=== PATIENT | male | born 1960 | race Caucasian/White ===

== ENCOUNTER 2020-12-16 17:18 | Emergency (ER) | payer MEDICARE, MEDICAID, SELFPAY ==
--- NOTE | 2020-12-16 17:23 | ED.SKABFB ---
HPI - Skin/Abscess/Foreign Bdy General Stated complaint: left elbow sore Time Seen by Provider: 12/16/20 17:22 Source: patient and RN notes reviewed History of Present Illness HPI narrative: Patient is a 60-year-old male who presents the urgent care with complaints of a sore to the left elbow. Patient states he noticed it around noon yesterday and believes it is a spider bite . Patient did not see a spider bite him. Denies any fever, chills, nausea, vomiting. Patient has been loading salve on the area and covering it with an occlusive bandage. No other acute complaints. No acute distress noted. Patient aware of the plan of care. Some parts of this dictation were generated by voice recognition software and may contain typographical and/or grammatical inaccuracies. Related Data Allergies Allergy/AdvReac Type Severity Reaction Status Date / Time ciprofloxacin Allergy Unknown Verified 12/16/20 17:38 Review of Systems Review of Systems: CONSTITUTIONAL: Denies fever, chills, or sweats. EYES: Denies visual changes, redness, or discharge. ENT: Denies rhinorrhea, congestion, sore throat, or otalgia. CARDIOVASCULAR: Denies chest pain, palpitations, or edema. RESPIRATORY: Denies cough or dyspnea. GASTROINTESTINAL: Denies abdominal pain, nausea, vomiting, or diarrhea. GENITOURINARY: Denies dysuria or hematuria. SKIN: Reports of a possible spider bite to the left elbow MUSCULOSKELETAL: Denies back pain, joint pain, or myalgia. NEUROLOGIC: Denies headache, numbness, or weakness. All other systems reviewed are negative, except as documented in HPI. PMFSH Comments At the time of my signature, I reviewed and agree with the nursing past medical, surgical, social, and family history. There is no relevant family history pertinent to the patient complaint. Exam Narrative: GENERAL: This is a well-nourished, well-developed patient, in no apparent distress. HEAD: normocephalic, atraumatic. EYES: PERRL. Sclera clear/white. Vision is grossly intact. EARS: External ears normal NOSE: External nose normal with no obvious nasal discharge, nares without redness, no rhinorrhea. THROAT: Mucous membranes moist NECK: Neck supple CARDIOVASCULAR: Regular rate and rhythm without murmurs, gallops, or rubs. RESPIRATORY: Clear to auscultation. Breath sounds equal bilaterally. No wheezes, rales, or rhonchi. SKIN: Firm 2 x 2 area surrounding a nondraining insect bite to the left upper forearm without any surrounding erythema NEURO: awake, alert, and oriented to person, place and time. There were no obvious focal neurologic abnormalities. EXTREMITIES: No clubbing, cyanosis, or edema. Course Vital Signs Vital signs: Vital Signs Temperature 98.6 F 12/16/20 17:27 Pulse Rate 87 12/16/20 17:27 Respiratory Rate 16 12/16/20 17:27 Blood Pressure 117/83 12/16/20 17:27 Pulse Oximetry 98 12/16/20 17:27 Temperature 98.6 F 12/16/20 17:27 Pulse Rate 87 12/16/20 17:27 Respiratory Rate 16 12/16/20 17:27 Blood Pressure 117/83 12/16/20 17:27 Pulse Oximetry 98 12/16/20 17:27 Reviewed MDM - Skin/Abscess/Foreign Bdy MDM Narrative Medical decision making narrative: Explained to the patient that this is a typical type of localized reaction to a possible insect. These areas do not normally become infected unless you continue to pick on the area. At this time antibiotics are not necessary. However, will fill an antibiotic regimen. If the area becomes increased in size, pain or redness?start the antibiotic regimen. Make sure to eat and drink with the medication. Keep the area clean with plain Dial soap and water and tent a bandage over the area with prescription cream. Follow-up with your PCP within 2 to 5 days if worsening symptoms or failure to improve. Differential Diagnosis Differential diagnosis: Likely abscess of skin or subcutaneous tissue, allergic reaction to drug, cellulitis, insect bites, impetigo and contact dermatitis Critical C
[2020-12-16 17:27] VITALS: BP 117/83; PULSE 87; RESP 16; TEMP 37; O2SAT 98
== END 2020-12-16 17:40 | disposition home or self-care (01) ==
PROVIDERS: Emergency Provider Nurse Practitioner Family; PCP Nurse Practitioner Family
DX: S50.862A Insect bite (nonvenomous) of left forearm, initial encounter (principal); W57.XXXA Bitten or stung by nonvenomous insect and other nonvenomous arthropods, initial encounter; E78.00 Pure hypercholesterolemia, unspecified; K21.9 Gastro-esophageal reflux disease without esophagitis; E03.9 Hypothyroidism, unspecified; I50.9 Heart failure, unspecified; E11.9 Type 2 diabetes mellitus without complications
CPT/HCPCS: 99213; G0463

== ENCOUNTER 2021-01-10 08:15 | Emergency (ER) | payer MEDICARE, MEDICAID, SELFPAY ==
--- NOTE | 2021-01-10 08:17 | ED.URI ---
HPI - URI/Sore Throat General Chief Complaint: Upper Respiratory Infection Stated Complaint: Cough/Chest Congestion Time Seen by Provider: 01/10/21 08:17 Source: patient and RN notes reviewed History of Present Illness HPI Narrative: Patient is 60-year-old male who presents the urgent care with complaints of acute on chronic sinusitis. Patient states that he has noticed an increased cough and sinus congestion for the last week with postnasal drainage. Patient denies of any recent fevers, nausea, vomiting. Patient has been to several ENTs without any relief. Patient states he is taken antibiotics, use a nasal spray, and nothing is working. Patient states that for the last week with his new symptoms he has been taking everything [id number] including cold and cough medication . No other acute complaints. No acute distress noted. Patient aware of the plan of care. Some parts of this dictation were generated by voice recognition software and may contain typographical and/or grammatical inaccuracies. Related Data Home Medications Medication Instructions Recorded Confirmed carvedilol 6.25 mg PO DAILY 01/10/21 01/10/21 dapagliflozin [Farxiga] 5 mg PO DAILY 01/10/21 01/10/21 furosemide 40 mg PO DAILY 01/10/21 01/10/21 levocetirizine 5 mg PO DAILY 01/10/21 01/10/21 levothyroxine 50 mcg PO DAILY 01/10/21 01/10/21 metformin 1,000 mg PO DAILY 01/10/21 01/10/21 montelukast 10 mg PO DAILY 01/10/21 01/10/21 omeprazole 20 mg PO DAILY 01/10/21 01/10/21 pravastatin 20 mg PO DAILY 01/10/21 01/10/21 sacubitril-valsartan [Entresto] 1 tablet PO DAILY 01/10/21 01/10/21 tamsulosin 0.4 mg PO DAILY 01/10/21 01/10/21 Allergies Allergy/AdvReac Type Severity Reaction Status Date / Time No Known Allergies Allergy Verified 01/10/21 08:39 Review of Systems Review of Systems: CONSTITUTIONAL: Denies fever, chills, or sweats. EYES: Denies visual changes, redness, or discharge. ENT: Reports of rhinorrhea, sinus congestion and postnasal drainage CARDIOVASCULAR: Denies chest pain, palpitations, or edema. RESPIRATORY: Reports of cough without dyspnea GASTROINTESTINAL: Denies abdominal pain, nausea, vomiting, or diarrhea. GENITOURINARY: Denies dysuria or hematuria. SKIN: Denies rash or itching. MUSCULOSKELETAL: Denies back pain, joint pain, or myalgia. NEUROLOGIC: Denies headache, numbness, or weakness. All other systems reviewed are negative, except as documented in HPI. PMFSH Comments At the time of my signature, I reviewed and agree with the nursing past medical, surgical, social, and family history. There is no relevant family history pertinent to the patient complaint. Exam Narrative: GENERAL: This is a well-nourished, well-developed patient, in no apparent distress. HEAD: normocephalic, atraumatic. Frontal sinus tenderness EYES: PERRL. Sclera clear/white. Vision is grossly intact. EARS: External ears normal, auditory canals clear and without drainage, TMs normal without perforation. Hearing grossly intact. NOSE: External nose normal with no obvious nasal discharge, bilateral erythemic nares with clear rhinorrhea. THROAT: Mucous membranes moist, posterior pharynx clear. Moderate postnasal drainage NECK: Neck supple, non-tender without lymphadenopathy CARDIOVASCULAR: Regular rate and rhythm without murmurs, gallops, or rubs. RESPIRATORY: Clear to auscultation. Breath sounds equal bilaterally. No wheezes, rales, or rhonchi. SKIN: warm, intact with no suspicious lesions or rash, good texture and turgor. NEURO: awake, alert, and oriented to person, place and time. There were no obvious focal neurologic abnormalities. EXTREMITIES: No clubbing, cyanosis, or edema. Course Vital Signs Vital signs: Vital Signs Temperature 98.0 F 01/10/21 08:26 Pulse Rate 73 01/10/21 08:26 Respiratory Rate 20 01/10/21 08:26 Blood Pressure 121/70 01/10/21 08:26 Pulse Oximetry 100 01/10/21 08:26 Temperature 98.0 F 01/10/21 08:26 Pulse Rat
[2021-01-10 08:26] VITALS: BP 121/70; PULSE 73; RESP 20; TEMP 36.7; O2SAT 100
== END 2021-01-10 08:49 | disposition home or self-care (01) ==
PROVIDERS: Emergency Provider Nurse Practitioner Family; PCP Nurse Practitioner Family
DX: J01.90 Acute sinusitis, unspecified (principal); E78.00 Pure hypercholesterolemia, unspecified; I10 Essential (primary) hypertension; K21.9 Gastro-esophageal reflux disease without esophagitis; M19.90 Unspecified osteoarthritis, unspecified site
CPT/HCPCS: 99213; G0463

== ENCOUNTER 2021-05-22 14:43 | Emergency (ER) | payer MEDICARE, MEDICAID, SELFPAY ==
[2021-05-22 14:55] VITALS: BP 113/71; PULSE 91; RESP 16; TEMP 37.3; O2SAT 97
--- NOTE | 2021-05-22 15:23 | ED.URI ---
HPI - URI/Sore Throat General Chief Complaint: Upper Respiratory Infection Stated Complaint: sinus infection Time Seen by Provider: 05/22/21 15:20 Source: patient and RN notes reviewed Mode of arrival: ambulatory Limitations: no limitations History of Present Illness HPI Narrative: 61-year-old male presents concern for number 1 week history of sinus pressure, congestion, pain, cough, purulent drainage. Reports history of sinus surgery and infections. Reports trying Mucinex that relief. He denies fever, bodies, chills, sweats. MD elicited complaint: cough, rhinorrhea and nasal congestion Related Data Home Medications Medication Instructions Recorded Confirmed carvedilol 6.25 mg PO BID 12/16/20 05/22/21 dapagliflozin [Farxiga] 5 mg PO DAILY 12/16/20 05/22/21 furosemide 40 mg PO DAILY 12/16/20 05/22/21 hydrocodone-acetaminophen 1 tablet PO TID PRN 12/16/20 05/22/21 levocetirizine 5 mg PO DAILY 12/16/20 05/22/21 levothyroxine 50 mcg PO DAILY 12/16/20 05/22/21 montelukast 10 mg PO DAILY 12/16/20 05/22/21 omeprazole 20 mg PO DAILY 12/16/20 05/22/21 metformin 1,000 mg PO DAILY 01/10/21 05/22/21 pravastatin 20 mg PO DAILY 01/10/21 05/22/21 sacubitril-valsartan [Entresto] 1 tablet PO DAILY 01/10/21 05/22/21 tamsulosin 0.4 mg PO DAILY 01/10/21 05/22/21 cyclobenzaprine 10 mg PO TID PRN 05/22/21 05/22/21 Allergies Allergy/AdvReac Type Severity Reaction Status Date / Time ciprofloxacin Allergy Unknown Verified 05/12/21 08:33 sitagliptin [From Januvia] Allergy Rash Verified 05/22/21 15:10 Review of Systems Review of Systems: CONSTITUTIONAL: Denies malaise, chills, sweats, or fever. EYES: Denies visual changes, redness, or discharge. ENT: Reports rhinorrhea, congestion, sinus pain. Denies otalgia and sore throat. CARDIOVASCULAR: Denies chest pain, palpitations, or edema. RESPIRATORY: Reports cough. Denies dyspnea. GASTROINTESTINAL: Denies abdominal pain, nausea, vomiting, diarrhea SKIN: Denies rash or itching. MUSCULOSKELETAL: Denies myalgia. NEUROLOGIC: Denies headache. All systems reviewed & are unremarkable except as noted in HPI and below PMFSH Comments At time of signature, agree with nursing past medical, surgical, social and family history. There is no relevant family history pertinent to the presenting complaint Exam Narrative: GENERAL: Well-appearing, well-nourished, and in no acute distress. HEAD: Normocephalic EYES: PERRLA, conjunctivae clear ENT: Nares clear, turbinates edematous and erythematous, clear discharge. Mucous membranes moist. TM pearly raines with dull light reflex bilaterally; no tragal tenderness. Oropharynx not erythematous without lesions. Tonsils not enlarged and without exudate, no drooling, no hoarseness, no trismus, uvula midline. NECK: Supple. No lymphadenopathy CHEST: Clear to auscultation, breath sounds equal. No wheezing, rhonchi, rales, or stridor. No respiratory distress, speaks in full sentences. HEART: Regular rate and rhythm. No murmur heard. SKIN: Warm, dry, no rash. NEURO: Alert and oriented x3. PSYCH: Normal mood and affect Course Course Emergency Course: Patient is aware of diagnosis, understands and agrees to treatment plan. Anticipatory guidance given. Patient agrees to follow-up as directed and is aware of reasons to seek care at the emergency department. Portions of this record may have been created with voice recognition software Level of Care: Express Care Visit Vital Signs Vital signs: Vital Signs Temperature 99.1 F 05/22/21 14:55 Pulse Rate 91 05/22/21 14:55 Respiratory Rate 16 05/22/21 14:55 Blood Pressure 113/71 05/22/21 14:55 Pulse Oximetry 97 05/22/21 14:55 Temperature 99.1 F 05/22/21 14:55 Pulse Rate 91 05/22/21 14:55 Respiratory Rate 16 05/22/21 14:55 Blood Pressure 113/71 05/22/21 14:55 Pulse Oximetry 97 05/22/21 14:55 Reviewed. MDM - URI/Sore Throat MDM Narrative Medical decision making narrative: Differential diagnosi
== END 2021-05-22 15:33 | disposition home or self-care (01) ==
PROVIDERS: Emergency Provider Nurse Practitioner; PCP Nurse Practitioner Family
DX: J32.9 Chronic sinusitis, unspecified (principal); J40 Bronchitis, not specified as acute or chronic; E78.00 Pure hypercholesterolemia, unspecified; I10 Essential (primary) hypertension; K21.9 Gastro-esophageal reflux disease without esophagitis; M19.90 Unspecified osteoarthritis, unspecified site; E11.9 Type 2 diabetes mellitus without complications; E03.9 Hypothyroidism, unspecified
CPT/HCPCS: 99213; G0463

== ENCOUNTER 2021-10-20 10:39 | Emergency (ER) | payer MEDICARE, MEDICAID, SELFPAY ==
--- NOTE | ~2021-10-20 | XR_ITS ---
EXAMINATION: XR chest 2V 10/20/2021 11:28 INDICATION: Cough. CHF. PROCEDURE: 2 view chest COMPARISON: No prior studies for comparison. FINDINGS: The lungs are clear. The cardiomediastinal silhouette is within normal limits. There are no pleural effusions. There is no pneumothorax suspected. 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 IMPRESSION: 1: NO ACUTE CARDIOPULMONARY DISEASE. Reviewed, dictated and finalized at location B.
[2021-10-20 10:44] VITALS: BP 125/74; PULSE 73; RESP 20; TEMP 37.3; O2SAT 98
--- NOTE | 2021-10-20 11:08 | ED.URI ---
HPI - URI/Sore Throat General Chief Complaint: Upper Respiratory Infection Stated Complaint: cough Time Seen by Provider: 10/20/21 11:13 Source: patient and RN notes reviewed Mode of arrival: ambulatory Limitations: no limitations History of Present Illness HPI Narrative: 61 y/o male presented for c/o cough worsening for one week. He was seen in ER 10/13/21 for sinusitis, taking Augmentin x14 days as directed. States cough has persisted, worse at night. Productive clear/white sputum. Occasional wheezing at night. Endorses fatigue and sob with exertion and throat/chest discomfort with cough. History of bronchitis, diabetes, CHF. MD elicited complaint: cough Related Data Home Medications Medication Instructions Recorded Confirmed carvedilol 6.25 mg tablet 6.25 mg PO BID 12/16/20 10/20/21 dapagliflozin 5 mg tablet (Farxiga) 5 mg PO DAILY 12/16/20 10/20/21 furosemide 40 mg tablet 40 mg PO DAILY 12/16/20 10/20/21 hydrocodone 7.5 mg-acetaminophen 1 tablet PO TID PRN Pain 12/16/20 10/20/21 325 mg tablet levocetirizine 5 mg tablet 5 mg PO DAILY 12/16/20 10/20/21 levothyroxine 50 mcg tablet 50 mcg PO DAILY 12/16/20 10/20/21 montelukast 10 mg tablet 10 mg PO DAILY 12/16/20 10/20/21 omeprazole 20 mg capsule,delayed 20 mg PO DAILY 12/16/20 10/20/21 release metformin 1,000 mg tablet 1,000 mg PO DAILY 01/10/21 10/20/21 pravastatin 20 mg tablet 20 mg PO DAILY 01/10/21 10/20/21 sacubitril 49 mg-valsartan 51 mg 1 tablet PO DAILY 01/10/21 10/20/21 tablet (Entresto) tamsulosin 0.4 mg capsule 0.4 mg PO DAILY 01/10/21 10/20/21 cyclobenzaprine 10 mg tablet 10 mg PO TID PRN Muscle Spasm 05/22/21 10/20/21 Allergies Allergy/AdvReac Type Severity Reaction Status Date / Time ciprofloxacin Allergy Unknown Verified 10/20/21 11:03 sitagliptin [From Januvia] Allergy Rash Verified 10/20/21 11:03 Review of Systems Review of Systems: CONSTITUTIONAL: denies malaise, chills, sweats, fever EYES: Denies visual changes, redness, or discharge ENT: Reports rhinorrhea, congestion, sinus pain CARDIOVASCULAR: Denies chest pain, palpitations, edema RESPIRATORY: Reports cough, post nasal drainage. GASTROINTESTINAL: Denies abdominal pain, nausea, vomiting, diarrhea SKIN: Denies rash or itching MUSCULOSKELETAL: denies myalgia NEUROLOGIC: Denies headache Exam Narrative: GENERAL: Ill-appearing EYES: conjunctivae clear ENT: Mucous membranes moist. TM pearly raines with dull light reflex bilaterally; no tragal tenderness. Oropharynx erythematous without lesions or exudate, no drooling, no hoarseness, no trismus, uvula midline. CHEST: Crackles to bases. No wheezing, rhonchi, rales, or stridor. No respiratory distress, speaks in full sentences. HEART: Regular rate and rhythm. No murmur heard. SKIN: Warm, dry, no rash. NEURO: Alert and oriented x3. PSYCH: Normal mood and affect Course Course Emergency Course: Patient is aware of diagnosis, understands and agrees to treatment plan. Anticipatory guidance given. Patient agrees to follow-up as directed and is aware of reasons to seek care at the emergency department. Portions of this record may have been created with voice recognition software Level of Care: Express Care Visit Vital Signs Vital signs: Vital Signs Temperature 99.1 F 10/20/21 10:44 Pulse Rate 73 10/20/21 10:44 Respiratory Rate 20 10/20/21 10:44 Blood Pressure 125/74 10/20/21 10:44 Pulse Oximetry 98 10/20/21 10:44 Oxygen Delivery Room Air 10/20/21 10:44 Temperature 99.1 F 10/20/21 10:44 Pulse Rate 73 10/20/21 10:44 Respiratory Rate 20 10/20/21 10:44 Blood Pressure 125/74 10/20/21 10:44 Pulse Oximetry 98 10/20/21 10:44 Oxygen Delivery Room Air 10/20/21 10:44 reviewed MDM - URI/Sore Throat MDM Narrative Medical decision making narrative: Result of chest x-ray reviewed with patient. No acute disease. Advised supportive measures, reviewed Rx's and signs/symptoms to go to the ER. Pt is a
== END 2021-10-20 11:55 | disposition home or self-care (01) ==
PROVIDERS: Emergency Provider Nurse Practitioner Family; PCP Nurse Practitioner Family
DX: J40 Bronchitis, not specified as acute or chronic (principal); E11.9 Type 2 diabetes mellitus without complications; I50.9 Heart failure, unspecified
CPT/HCPCS: 71046; 99213; G0463

== ENCOUNTER 2022-06-25 11:47 | Emergency (ER) | payer MEDICARE, MEDICAID, SELFPAY ==
[2022-06-25 11:54] VITALS: BP 114/73; PULSE 79; RESP 20; TEMP 37; O2SAT 98
[2022-06-25 12:02] VITALS: BP 114/73; PULSE 79; RESP 20; TEMP 37; O2SAT 98
--- NOTE | 2022-06-25 12:02 | ED.DENTAL ---
HPI - Dental/Oral General Chief complaint: Ear Stated complaint: ear or tooth Time Seen by Provider: 06/25/22 12:02 History of Present Illness HPI Narrative: Patient presents with left ear on left lower gum pain. Patient is not sure if it is here or his teeth. Patient states he has bad teeth and has not seen a dentist in quite some time. Related Data Home Medications Medication Instructions Recorded Confirmed carvedilol 6.25 mg tablet 6.25 mg PO BID 12/16/20 06/25/22 furosemide 40 mg tablet 40 mg PO DAILY 12/16/20 06/25/22 hydrocodone 7.5 mg-acetaminophen 1 tablet PO TID PRN Pain 12/16/20 06/25/22 325 mg tablet levocetirizine 5 mg tablet 5 mg PO DAILY 12/16/20 06/25/22 levothyroxine 50 mcg tablet 50 mcg PO DAILY 12/16/20 06/25/22 montelukast 10 mg tablet 10 mg PO DAILY 12/16/20 06/25/22 omeprazole 20 mg capsule,delayed 20 mg PO DAILY 12/16/20 06/25/22 release metformin 1,000 mg tablet 1,000 mg PO DAILY 01/10/21 06/25/22 pravastatin 20 mg tablet 20 mg PO DAILY 01/10/21 06/25/22 sacubitril 49 mg-valsartan 51 mg 1 tablet PO DAILY 01/10/21 06/25/22 tablet (Entresto) tamsulosin 0.4 mg capsule 0.4 mg PO DAILY 01/10/21 06/25/22 Allergies Allergy/AdvReac Type Severity Reaction Status Date / Time ciprofloxacin Allergy Unknown Verified 06/25/22 11:59 sitagliptin [From Januvia] Allergy Rash Verified 06/25/22 11:59 Review of Systems Review of Systems: CONSTITUTIONAL: Denies fever, chills, or sweats. EYES: Denies visual changes, redness, or discharge. ENT: Denies rhinorrhea, congestion, sore throat, or otalgia. NO FEVER. NO JAW SWELLING. NO NECK SWELLING. NO LIMITATION WITH SPEAKING OR SWALLOWING. HAS A HISTORY OF DENTAL CARIES. HAS NOT SEEN A DENTIST RECENTLY. Pain to left lower molar CARDIOVASCULAR: Denies chest pain, palpitations, or edema. RESPIRATORY: Denies cough or dyspnea. GASTROINTESTINAL: Denies abdominal pain, nausea, vomiting, or diarrhea. GENITOURINARY: Denies dysuria or hematuria. SKIN: Denies rash or itching. MUSCULOSKELETAL: Denies back pain, joint pain, or myalgia. NEUROLOGIC: Denies headache, numbness, or weakness. PSYCHIATRIC: Denies anxiety or depression. Exam Narrative: GENERAL: Well-appearing, well-nourished, and in no acute distress. HEAD: Normocephalic, atraumatic. EYES: PERRLA and EOMI. ENT: Nares clear, no rhinorrhea or epistaxis. Mucous membranes moist. NO YOLANDA APICAL SWELLING, TOOTH TENDER TO PALPATION. NO FACIAL SWELLING. NO TRISMUS. ABLE TO OPEN MOUTH FULLY. NO NECK SWELLING OR LIU'S ANGINA. NO ABSCESS TO BE DRAINED. no drooling, trismus, facial asymmetry or significant neck swelling left 1st molar NECK: Supple. CHEST: Clear to auscultation. No respiratory distress. HEART: Regular rate and rhythm. No murmur heard. Normal peripheral pulses. ABDOMEN: Soft, nontender, nondistended, normal active bowel sounds. EXTREMITIES: Normal range of motion. No edema. SKIN: Warm, dry, no rash. NEURO: No focal deficits. Alert and oriented x3. [place] Coma Scale Eye Opening: Spontaneous 4 [place] Coma Scale Motor: Obeys Commands 6 [place] Coma Scale Verbal: Oriented 5 [place] Coma Scale Total 15 Course Course Level of Care: Express Care Visit Vital Signs Vital signs: Vital Signs Temperature 37.0 C 06/25/22 11:54 Pulse Rate 79 06/25/22 11:54 Respiratory Rate 20 06/25/22 11:54 Blood Pressure 114/73 06/25/22 11:54 Pulse Oximetry 98 06/25/22 11:54 Oxygen Delivery Room Air 06/25/22 11:54 Temperature 37.0 C 06/25/22 12:02 Pulse Rate 79 06/25/22 12:02 Respiratory Rate 20 06/25/22 12:02 Blood Pressure 114/73 06/25/22 12:02 Pulse Oximetry 98 06/25/22 12:02 Oxygen Delivery Room Air 06/25/22 12:02 MDM - Dental/Oral Differential Diagnosis Differential diagnosis: Likely gingival abscess, dental caries, toothache, dental abscess, fracture of tooth and aphthous ulcer Discharge Plan Discharge Clinical Impression: Dental abscess, Pain due to dental caries
== END 2022-06-25 12:09 | disposition home or self-care (01) ==
PROVIDERS: Emergency Provider Nurse Practitioner Family; PCP Nurse Practitioner Family
DX: K04.7 Periapical abscess without sinus (principal)
CPT/HCPCS: 99213; G0463